=== PATIENT | female | born 1960 | race Caucasian/White ===

== ENCOUNTER 2022-08-08 16:43 | Emergency (ER) | payer OTHER, SELFPAY ==
[2022-08-08 16:52] VITALS: BP 250/99; PULSE 90; RESP 18; TEMP 37.1; O2SAT 98
--- NOTE | 2022-08-08 17:04 | ED.URI ---
HPI - URI/Sore Throat General Chief Complaint: Upper Respiratory Infection Stated Complaint: Chest Congestion/Cough Time Seen by Provider: 08/08/22 17:15 Source: patient and RN notes reviewed Mode of arrival: ambulatory Limitations: no limitations History of Present Illness HPI Narrative: 62-year-old female presented for complaint of cough, chest congestion and fever today. Endorses waking this morning with fever and feeling lungs hurt at the center of chest. She took Mucinex and Tylenol for the fever of 100. She reports improvement until 1400 when her fever was 100 again, and she felt wheezing. She took Tylenol and Mucinex again with improvement in symptoms. She states she believes her fever broke. At that time she started coughing up green sputum which resolved wheezing and improved symptoms. States dx with URI yesterday. She denies nausea, vomiting, diarrhea, shortness of breath. She endorses a posterior headache. Endorses increased stress today caring for her sick grandchild who cried all day. Blood pressure significantly elevated upon arrival. Denies history of HTN, has not seen PCP in over 4 years. MD elicited complaint: cough Related Data Home Medications Medication Instructions Recorded Confirmed No Home Medications 08/08/22 08/08/22 Allergies Allergy/AdvReac Type Severity Reaction Status Date / Time codeine Allergy Severe Anaphylactic Verified 08/08/22 17:39 Shock Review of Systems Review of Systems: CONSTITUTIONAL: Denies malaise, reports chills, sweats, fever EYES: Denies visual changes, redness, or discharge ENT: Reports rhinorrhea, congestion, denies sinus pain, otalgia, sore throat CARDIOVASCULAR: Denies chest pain, palpitations, edema RESPIRATORY: Reports cough, post nasal drainage. Denies dyspnea GASTROINTESTINAL: Denies abdominal pain, nausea, vomiting, diarrhea SKIN: Denies rash or itching MUSCULOSKELETAL: denies myalgia NEUROLOGIC: Denies headache Exam Narrative: GENERAL: well-appearing, EYES: PERRLA, conjunctivae clear ENT: Mucous membranes moist. TMs pearly gibbons with dull light reflex bilaterally; no tragal tenderness. CHEST: Clear to auscultation, breath sounds equal.. No respiratory distress, speaks in full sentences. HEART: Regular rate and rhythm. No murmur heard. SKIN: Warm, dry, no rash. NEURO: Alert and oriented x3. PSYCH: Normal mood and affect Course Course Emergency Course: Patient is aware of diagnosis, understands and agrees to treatment plan. Anticipatory guidance given. Portions of this record may have been created with voice recognition software Level of Care: Express Care Visit Vital Signs Vital signs: Vital Signs Temperature 98.7 F 08/08/22 16:52 Pulse Rate 90 08/08/22 16:52 Respiratory Rate 18 08/08/22 16:52 Blood Pressure 250/99 H 08/08/22 16:52 Pulse Oximetry 98 08/08/22 16:52 Oxygen Delivery Room Air 08/08/22 16:52 Temperature 98.7 F 08/08/22 16:52 Pulse Rate 90 08/08/22 16:52 Respiratory Rate 18 08/08/22 16:52 Blood Pressure 214/110 H 08/08/22 18:06 Pulse Oximetry 98 08/08/22 16:52 Oxygen Delivery Room Air 08/08/22 16:52 reviewed Transfer Transfered to: [facility] Transportation: Other (private vehicle) Transfer rationale: Pt is agreeable to transfer. Requests transfer to [facility] via private vehicle. Risks of transportation reviewed with pt including injury, worsening of condition and . v/u. Dtr will be driving pt; Report called to hospital, spoke with Savi NATHAN, Dr Harris accepting physician. Pt is in stable condition at time of transfer. Advised to remain NPO and go directly to the hospital. MDM - URI/Sore Throat MDM Narrative Medical decision making narrative: Blood pressure rechecked x3, 220/110. EKG showed SR possible old LA. covid and flu tests negative. Reviewed with pt. advised ER transfer, requests [facility]. Differential Diagnosis Dif
[2022-08-08 17:18] VITALS: BP 224/110
--- NOTE | 2022-08-08 17:31 | ECG_ITS ---
Measurements Intervals [place] Rate: 83 P: 38 CA: 136 QRS: 1 QRSD: 105 T: 19 QT: 393 QTc: 464 Interpretive Statements SINUS RHYTHM CANNOT RULE OUT ANTERIOR MYOCARDIAL INFARCTION, AGE INDETERMINATE NONSPECIFIC ST ABNORMALITY ABNORMAL ECG NO PREVIOUS ECG AVAILABLE FOR COMPARISON Electronically Signed On 08-09-2022 15:06:27 CDT by Ran Ellis M.D.
[2022-08-08 18:06] VITALS: BP 214/110
== END 2022-08-08 18:20 | disposition short-term general hospital (02) ==
PROVIDERS: Emergency Provider Nurse Practitioner Family
DX: I16.0 Hypertensive urgency (principal); J06.9 Acute upper respiratory infection, unspecified; Z20.822 Contact with and (suspected) exposure to COVID-19
CPT/HCPCS: 87426; 87804; 93005; 99213; C9803; G0463